=== PATIENT | male | born 1960 | race Caucasian/White ===

== ENCOUNTER 2018-06-28 19:58 | Emergency (ER) | payer BC ==
[~2018-06-28] VITALS: Ht 195.6 cm; Wt 105.7 kg
[2018-06-28 20:10] VITALS: Ht 195.6 cm; Wt 105.7 kg
[2018-06-28 22:22] LABS: BASOPHIL % 0.6 % (0-2); PLATELET COUNT 265 x10^3mcL (130-400); RED CELL DISTRIBUTION WIDTH 13.8 % (11.5-14.5)
[2018-06-28 22:30] LABS: CALCIUM 8.9 mg/dL (8.5-10.1); CARBON DIOXIDE 25.2 mmol/L (21-32); CHLORIDE SERUM 95 mmol/L (98-107); GFR1 > 60 mL/min; GLUCOSE SERUM 111 mg/dL (74-106); POTASSIUM SERUM 4.1 mmol/L (3.5-5.1); SODIUM SERUM 133 mmol/L (136-145)
[2018-06-28 22:35] LABS: ALKALINE PHOSPHATASE 156 U/L (46-116); ALT/SGPT 33 U/L (16-63); AST/SGOT 22 U/L (15-37); BILIRUBIN TOTAL 1.9 mg/dL (0.20-1.00)
[2018-06-28 22:41] LABS: ALBUMIN 3.1 g/dL (3.4-5.0)
[2018-06-28 23:48] LABS: microscopic required? YES; urine erythrocyte 3+ (NEGATIVE)
[2018-06-29 01:35] VITALS: BP 118/75
== END 2018-06-29 01:35 | disposition home or self-care (01) ==
LOC: ED 19:58
PROVIDERS: Emergency Medicine
DX: R10.11 Right upper quadrant pain (principal); R11.0 Nausea; R53.1 Weakness; E78.00 Pure hypercholesterolemia, unspecified; Z90.49 Acquired absence of other specified parts of digestive tract
CPT/HCPCS: J1885; J7030; Q0092

== ENCOUNTER 2018-07-10 10:54 | Inpatient (IN) | payer BC ==
[~2018-07-10] VITALS: Ht 182.9 cm; Wt 102.5 kg
--- NOTE | 2018-07-10 11:32 | NUR ---
AWAKE ALERT, STATED HAS BEEN HAVING FEVER ON AND OFF FOR THE LAST ONE MONTH,TODAY IN AM STARTED TO HAVE RECTAL BLEED WITH BLOOD CLOTS,MINOR LOWER ABDOMINAL PAIN,
--- NOTE | 2018-07-10 11:38 | NUR ---
RECTAL EXAM DONE,POSITIVE BLOOD
[2018-07-10] MEDS ORDERED: OMEPRAZOLE (11:39)
[2018-07-10 12:21] LABS: CALCIUM 8.2 mg/dL (8.5-10.1); CHLORIDE SERUM 94 mmol/L (98-107); GFR1 > 60 mL/min; GLUCOSE SERUM 107 mg/dL (74-106); POTASSIUM SERUM 3.7 mmol/L (3.5-5.1); SODIUM SERUM 127 mmol/L (136-145)
[2018-07-10 12:22] LABS: RED CELL DISTRIBUTION WIDTH 14.1 % (11.5-14.5)
[2018-07-10 12:34] LABS: ALKALINE PHOSPHATASE 246 U/L (46-116); ALT/SGPT 59 U/L (16-63); AST/SGOT 56 U/L (15-37); BILIRUBIN TOTAL 1.61 mg/dL (0.20-1.00); LIPASE 94 IU/L (73-393); T4(THYROXINE) 8.1 ug/dL (4.7-13.3); TOTAL PROTEIN, SERUM 6.9 g/dL (6.4-8.2)
[2018-07-10 12:38] LABS: ALBUMIN 1.9 g/dL (3.4-5.0)
[2018-07-10 12:39] LABS: PLATELET COUNT 444 x10^3mcL (130-400)
--- NOTE | 2018-07-10 12:53 | NUR ---
PT RELAXED DENIES PAIN SPOUSE AT BEDSIDE
[2018-07-10 14:31] LABS: microscopic required? YES; urine erythrocyte 1+ (NEGATIVE)
--- NOTE | 2018-07-10 15:20 | NUR ---
RECEIVED REPORT FROM ANT QUINTANA IN ED. AWAITING PT ARRIVAL TO FLOOR.
--- NOTE | 2018-07-10 15:22 | NUR ---
PT ADMIT TO TELE ROOM 225B GAVE REPORT TO KIKE
--- NOTE | 2018-07-10 15:47 | NUR ---
RECEIVED PT VIA [facility] FROM E/D, ACCOMPANIED BY RN AND TRANSPORTER. PT A/A/O X 4, CALM, COOPERATIVE. PT AMBULATED FROM [facility] TO BED WITHOUT GAIT OR BALANCE IMPAIRMENT. ON TELE # 9, NSR W/ RBBB, HR 94, DENIES CHEST PAIN OR DISCOMFORT AT THIS TIME. NO ACUTE RESPIRATORY DISTRESS NOTED. ABD SOFT, FLAT, NON-TENDER, NORMOACTIVE BOWEL SOUNDS X 4 QUADS, LAST BM 07/10/18, SOFT, BLOODY/BLOOD CLOTS. VOIDS FREELY, DENIES DYSURIA. IV SITE LAC 20G, CDI. ORIENTED PT TO ROOM, BED CONTROLS, CALL LIGHT SYSTEM. SIDE RAILS UP X 2, BED IN LOW POSITION. WILL ENDORSE TO MARIANO STOKES
[2018-07-10 15:59] LABS: MAGNESIUM 1.7 mg/dL (1.8-2.4); PHOSPHOROUS 2.2 mg/dL (2.5-4.9)
[2018-07-10 16:00] LABS: CHOLESTEROL/HDL RATIO 10.1
[2018-07-10 16:01] LABS: BAND NEUTROPHIL 8 % (0-10); METAMYELOCTE 1 % (0-2); MONOCYTE 4 % (0-7); SEGMENTED NEUTROPHILS 82 % (37-75)
[2018-07-10 16:03] LABS: PLATELET MORPHOLOGY PLATELETS NORMAL; ovalocyte/elliptocyte 1+; rbc morphology (normal/abnorm) ABNORMAL (NORMAL)
--- NOTE | 2018-07-10 16:20 | NUR ---
PT TEMP 102.4 TYLENOL GIVEN (SEE eMAR). COOLING MEASURES APPLIED. WILL REASSESS.
[2018-07-10 16:35] VITALS: BP 129/61
[2018-07-10 17:20] LABS: BILIRUBIN DIRECT 1.04 mg/dL (0.0-0.2); BILIRUBIN TOTAL 1.45 mg/dL (0.20-1.00)
--- NOTE | 2018-07-10 18:58 | NUR ---
PT RESTING COMFORTABLY IN BED. IV TO LFA IS PATENT AND INFUSING FLAGYL @ 100 ML/HR. NO REDNESS OR PAIN. TELE # [address]. PT DENIES CHEST PAIN. PT ON ROOM AIR. NO C/O SOB AND NO DISTRESS NOTED. WILL ENDORSE ALL CARE TO ONCOMING NURSE.
--- NOTE | 2018-07-10 19:30 | NUR ---
PT RECIEVED FROM THE DAY SHIFT RN, PT IS ALERT AND ORIENTED X4, PT IS CALM AND COOPERATIVE WITH CARE, NO ACUTE DISTRESS NOTED. IV INFUSING AND INTACT. PT HAS NO COMPLAINT OF PAIN. SAFETY AND COMFORT MEASURES MAINTAINED, BED IN LOWEST POSITION, CALL LIGHT WITHIN REACH, WILL CONTINUE TO MONITOR AT THIS TIME.
--- NOTE | 2018-07-10 19:47 | NUR ---
REPORT GIVEN TO AMY QUINTANA. PT RESTING COMFORTABLY IN BED. IV TO LFA IS PATENT AND INFUSING NS @ 100. ML/HR. NO REDNESS OR PAIN. TELE # [address] PT DENIES CHEST PAIN. ALL QUESTIONS AND CONCERNS ADDRESSED. ALL CARES ENDORSED.
[2018-07-10 20:48] VITALS: BP 105/57
--- NOTE | 2018-07-10 23:11 | NUR ---
PT OFF FLOOR TO CT. PT TAKEN VIA WHEELCHAIR.
--- NOTE | 2018-07-11 01:18 | NUR ---
PT IS AWAKE AND WATCHING TV AT THIS TIME. PT HAS BEEN ALERT AND ORIENTED X4. NO ACUTE DISTRESS NOTED. PT HAS NO COMPLAINT OF PAIN AT THIS TIME. WILL CONTINEU TO MONITOR AT THIS TIME.
--- NOTE | 2018-07-11 05:08 | NUR ---
PT HAS SLEPT IN SHORT INTERVALS THROUGHOUT THE SHIFT. PT HAS BEEN CALM AND COOPERATIVE WITH CARE AT THIS TIME. NO ACUTE DISTRESS NOTED. PT IS STILL CURRENTLY NPO EXCEPT MEDS AT THIS TIME. PT HAS NO COMPLAINT OF PAIN AT THIS TIME. PT IV IS INFUSING AND INTACT. SAFETY AND COMFORT MEASURES MAINTAINED, BED IN LOWEST POSITION, CALL LIGHT WITHIN REACH. WILL ENDORSE CONTINUITY OF CARE TO THE ONCOMING RN. WILL CONTINUE TO MONITOR.
[2018-07-11 05:35] VITALS: BP 131/72
--- NOTE | 2018-07-11 07:00 | NUR ---
RECEIVED BEDSIDE REPORT FROM [facility] WILLOW ANALYST NURSE AT THIS TIME. PATIENT RESTING COMFORTABLY IN BED. NO APPARENT DISTRESS OR DISCOMFORT NOTED. BREATHING EVEN AND UNLABORED. NO RESPIRATORY DISTRESS NOTED. PATIENT DENIES CHEST PAIN AT THIS TIME. IV PATENT AND INTACT. ALL QUESTIONS AND CONCERNS ADDRESSED. ALL NEEDS ATTENDED TO. WILL CONTINUE TO MONITOR
[2018-07-11 07:01] LABS: BASOPHIL % 0.1 % (0-2); RED CELL DISTRIBUTION WIDTH 14.2 % (11.5-14.5)
[2018-07-11 07:10] LABS: PLATELET COUNT 429 x10^3mcL (130-400)
[2018-07-11 07:39] LABS: ALKALINE PHOSPHATASE 219 U/L (46-116); ALT/SGPT 46 U/L (16-63); AST/SGOT 44 U/L (15-37); BILIRUBIN DIRECT 0.77 mg/dL (0.0-0.2); BILIRUBIN TOTAL 1.2 mg/dL (0.20-1.00); CALCIUM 8.3 mg/dL (8.5-10.1); CARBON DIOXIDE 24.3 mmol/L (21-32); CHLORIDE SERUM 98 mmol/L (98-107); CREATININE SERUM 0.9 mg/dL (0.7-1.3); GFR1 > 60 mL/min; GLUCOSE SERUM 91 mg/dL (74-106); MAGNESIUM 1.7 mg/dL (1.8-2.4); PHOSPHOROUS 2.5 mg/dL (2.5-4.9); POTASSIUM SERUM 3.8 mmol/L (3.5-5.1); SODIUM SERUM 132 mmol/L (136-145); TOTAL PROTEIN, SERUM 6.7 g/dL (6.4-8.2)
[2018-07-11 07:41] LABS: ALBUMIN 1.8 g/dL (3.4-5.0)
--- NOTE | 2018-07-11 09:18 | NUR ---
MORNING MEDICATIONS ADMINISTERED. PATIENT TOLERATED WELL. NO ADVERSE EFFECTS NOTED. ALL NEEDS ATTENDED TO. CALL LIGHT WITHIN REACH. WILL CONTINUE TO MONITOR
[2018-07-11 09:51] VITALS: BP 131/68
[2018-07-11] MEDS ORDERED: LEVOFLOXACIN500 M1 PO (11:36)
[2018-07-11] MEDS ORDERED: FLA500 PO (11:37)
[2018-07-11 12:45] VITALS: BP 131/68
--- NOTE | 2018-07-11 13:30 | NUR ---
PATIENT STABLE TO BE DISCHARGED TO HOME. DISCHARGE INSTRUCTIONS GIVEN WELL EDUCATION. INSTRUCTED PATIENT ABOUT FOLLOW UP APPOINTMENT. PATIENT VERBALIZES UNDERSTANDING. IV REMOVED WITH CATH INTACT. ID BANDS REMOVED. TELE MONITOR REMOVED AND RETURNED TO [facility]. ALL BELONGINGS WITH PATIENT. ALL QUESTIONS AND CONCERNS ADDRESSED. ALL NEEDS ATTENDED TO. ESCORTED DOWN TO THE LOBBY BY RN AT THIS TIME
== END 2018-07-11 13:45 | disposition home or self-care (01) | DRG 377 ==
LOC: ED 10:54 → DU 14:49
PROVIDERS: Emergency Medicine; ADMIT General Practice
DX: K57.93 Diverticulitis of intestine, part unspecified, without perforation or abscess with bleeding (principal); E43 Unspecified severe protein-calorie malnutrition; E87.1 Hypo-osmolality and hyponatremia; D62 Acute posthemorrhagic anemia; D68.59 Other primary thrombophilia; N39.0 Urinary tract infection, site not specified; K62.5 Hemorrhage of anus and rectum; E78.00 Pure hypercholesterolemia, unspecified; E78.5 Hyperlipidemia, unspecified; R74.0 Nonspecific elevation of levels of transaminase and lactic acid dehydrogenase [LDH]; E83.51 Hypocalcemia; E83.39 Other disorders of phosphorus metabolism; E83.42 Hypomagnesemia; K21.9 Gastro-esophageal reflux disease without esophagitis; Z90.49 Acquired absence of other specified parts of digestive tract; Z80.0 Family history of malignant neoplasm of digestive organs
CPT/HCPCS: J0295; J1956; J3490; J7030; Q0092